=== PATIENT | female | born 1945 | race Caucasian/White ===

== ENCOUNTER → 2021-02-02 14:20 | Outpatient (CLI) | payer MEDICARE, OTHER, SELFPAY ==
--- NOTE | 2021-02-02 14:28 | BI_ITS ---
MAMMOGRAPHY - UNILATERAL DIAGNOSTIC: LEFT BREAST REASON FOR EXAM: Female, 75 years old. Asymmetry on recent mammogram. PERTINENT HISTORY: Personal history of breast cancer. Prior right lumpectomy and radiation treatment. TECHNIQUE: Digital unilateral breast hari (3D mammographic acquisition) in the CC and MLO projections. 2-D mediolateral oblique (MLO) and craniocaudad (CC) views of both breasts were obtained. CAD: Full Field Digital Mammography with Computer Added Detection was performed. COMPARISON: Comparison is made with prior outside examination dated 01/19/2021. FINDINGS: Breast Composition: There are scattered areas of fibroglandular density. There are no dominant masses or suspicious calcifications. A tissue clip marker is seen in the upper lateral aspect of the left breast. No other significant abnormalities are identified. BI/DIAG MAMM W/CAD, UNILAT IMPRESSION: Stable unilateral diagnostic mammogram. Correlation with ultrasound is recommended. ASSESSMENT CATEGORY: BIRADS Category 0: Incomplete. Need additional imaging evaluation. A letter regarding these results will be sent to the patient by the facility within 30 days. Approximately 10% of breast cancers are not detected by mammography. A normal mammogram should not delay biopsy of a clinically suspicious abnormality. Electronically Signed: Malcolm Edmondson MD at 15:22 EDT , Service support ,
--- NOTE | 2021-02-02 14:28 | US_ITS ---
STUDY: ULTRASOUND BREAST - LEFT REASON FOR EXAM: Female, 75 years old. Abnormal screening mammogram. TECHNIQUE: Axial and longitudinal images of the LEFT breast were performed with a high resolution ultrasound transducer. # OF IMAGES: 43 COMPARISON: Comparison is made with prior mammogram done earlier in the day. FINDINGS: LEFT Breast: There is a 4 mm x 5 mm x 4 mm cyst at the 1 o''clock position of the breast at 3 cm from the nipple. There is also evidence of a dilated retroareolar duct. US/Breast Limited Unilateral IMPRESSION: 4 mm x 5 mm x 4 mm cyst at the 1 o''clock position of the breast at 3 cm from the nipple. Dilated retroareolar duct. ASSESSMENT CATEGORY: BIRADS Category 2: Benign. A letter regarding these results will be sent to the patient by the facility within 30 days. Electronically Signed: Malcolm Edmondson MD at 15:43 EDT , Service support ,
== END ==
PROVIDERS: PCP Family Medicine; Referring Provider Nurse Practitioner Family; Visit Provider Nurse Practitioner Family
DX: R92.8 Other abnormal and inconclusive findings on diagnostic imaging of breast (principal)
CPT/HCPCS: 76642; 77065

== ENCOUNTER 2021-06-04 13:44 | Inpatient (IN) | payer MEDICARE, OTHER, SELFPAY ==
[2021-06-04] VITALS (11 sets, daily range): BP systolic 119–142; BP diastolic 72–92; PULSE 78–103; RESP 15–20; TEMP 36.7–36.8; O2SAT 86–98; BMI 31.6; BMI 30.8
--- NOTE | 2021-06-04 14:06 | EKG12_ITS ---
Test Reason : SOB Blood Pressure : / mmHG Vent. Rate : 091 BPM Atrial Rate : 091 BPM P-R Int : 156 ms QRS Dur : 084 ms QT Int : 366 ms P-R-T Axes : 065 031 073 degrees QTc Int : 450 ms Normal sinus rhythm Normal ECG Confirmed by CORY RUIZ, PHIL ([id number]), fashion editor JAMES SANCHEZ ([id number]) on 06/06/2021 1:29:04 PM Referred By: KATRIN Confirmed By:PHIL RAY MD
--- NOTE | 2021-06-04 14:07 | ED.VIS.DYS ---
HPI History of Present Illness Chief Complaint: Shortness of Breath Detail of Chief Complaint: Cold symptoms for 3 days Informant: patient Narrative Narrative: Patient presents with cough and nasal congestion for 3 days. Patient started feeling more short of breath today. She is at times bringing up some white clear phlegm. She denies fever. She has had some intermittent headache. She denies chest pain. Patient has had her COVID-vaccine and booster. She denies sick contacts. [facility] Medical History (Updated 06/04/21 @ 16:[address] Norberto Quick, ) Depression High cholesterol HTN (hypertension) Home Medications alprazolam [Xanax Xr] 0.25 mg PO QHS PRN PRN 09/13/13 [History Last Taken Unknown] bisoprolol-hydrochlorothiazide 1 tab PO DAILY 09/13/13 [History Last Taken Unknown] fluoxetine 20 mg PO DAILY 09/13/13 [History Last Taken Unknown] simvastatin 20 mg PO QHS 09/13/13 [History Last Taken Unknown] Allergy/AdvReac Type Severity Reaction Status Date / Time bacitracin Allergy Rash Verified 06/04/21 13:48 [From Neosporin ([id number])] bacitracin zinc Allergy Rash Verified 06/04/21 13:48 [From Neosporin ([id number])] neomycin sulfate Allergy Rash Verified 06/04/21 13:48 [From Neosporin ([id number])] polymyxin B Allergy Rash Verified 06/04/21 13:48 [From Neosporin ([id number])] sulfamethoxazole AdvReac Nausea/Vom/ Verified 06/04/21 13:48 [From Bactrim] Diarrhea trimethoprim [From Bactrim] AdvReac Nausea/Vom/ Verified 06/04/21 13:48 Diarrhea Social History Smoking Status: Never smoker [facility] ED Constitutional Constitutional ED: Reports systems reviewed and no addt'l complaints, except as documented; Denies body ache(s), change in weight or chills Eyes Eyes: Denies acute decrease in peripheral vision, change in vision, double vision or loss of vision ENT ENT ED: Reports none; Denies ear pain, lip swelling, loss taste/smell, neck pain, otalgia or sore throat Cardiovascular Cardiovascular: Reports none; Denies abdominal pain, chest pain with activity, leg edema, lightheadedness, palpitations, rapid heart rate or syncope Respiratory/Chest Respiratory/Chest: Reports none, cough, dyspnea and sputum; Denies change in mental status, dry cough, hemoptysis, shortness of breath at rest or shortness of breath with exertion Gastrointestinal Gastrointestinal: Reports none; Denies abdominal pain, change in stool character, diarrhea, hematemesis, hematochezia, melena, rectal bleeding or vomiting Genitourinary Genitourinary ED: Reports none; Denies abdominal discomfort, anuria, dysuria, genital pain or polyuria Musculoskeletal Musculoskeletal: Reports none; Denies arthralgias, back pain, difficulty walking, extremity pain, muscle weakness or myalgias Integumentary Reports none; Denies abscess or rash Neurologic Neurologic: Reports none and headache(s); Denies abnormal gait, confusion, focal weakness, frequent falls, loss of vision, numbness, paresthesias, radicular pain, vertigo or weakness Psychiatric Psychiatric: Reports systems reviewed and no addt'l complaints, except as documented and none; Denies behavioral changes, confusion, difficulty concentrating, hallucinations, suicidal ideation, tactile hallucinations or visual hallucinations Endocrine Endocrinology: Denies none, cold intolerance, excessive sweating, fatigue or heat intolerance Hematologic/Lymphatic Hematologic/Lymphatic: Reports none; Denies anemia, easy bleeding or easy bruising Allergic/Immunologic Allergic/Immunologic ED: Denies as per HPI, none, lip swelling, mouth swelling, throat swelling, tongue swelling or hives EXAM Physical Exam Const Vital Signs: 06/04/21 13:45 06/04/21 14:43 06/04/21 14:50 Temperature 98.2 F Temperature Source Temporal Pulse Rate 103 H 89 Respiratory Rate 18 15 Respiratory Effort Short of Breath Respiratory Depth Deep Respiratory Pattern Tachypnea Blood Pressure 119/90 H Blood Pressure Mean 99 Pulse Ox 89 94 Oxygen Delivery Method Room Air Room Air Room Air Oxygen Flow Rate (L/min) 06/04/21 15:49 06/04/21 15:51 Temperature Temperature Source Pulse Rate 87 Respiratory Rate 18 Respiratory Effort Respiratory Depth Respiratory Pattern Blood Pressure 131/92 H Blood Pressure Mean 105 Pulse Ox 86 94 Oxygen Delivery Method Room Air Nasal Cannula Oxygen Flow Rate (L/min) 1 Positive well nourished and well developed General Appearance ED: well developed and NAD HEENT Reports TM's clear and moist mucous membranes normocephalic and atraumatic; Negative for trauma or tenderness Tympanic Membrane ED: Yes TM's clear Eyes PERRL and EOMs intact bilaterally General Eye ED: Negative for pale conjunctiva or scleral icterus Neck no lymphadenopathy, supple and no JVD General: Negative for tenderness Chest Wall inspection of chest normal and palpation of chest normal Chest: Negative for tenderness Resp normal respiratory effort and clear to auscultation bilaterally Resp Narrative: No significant tachypnea. No accessory muscle use or retractions. Effort and Inspection: Negative for respiratory distress or pain with movement Auscultation: wheezes; Negative for rhonchi or diminished lung sounds Cardio regular rate, regular rhythm, S1 normal heart sound, S2 normal heart sound and no murmurs Peripheral Pulses: pulses 2+ throughout GI normal to inspection, nondistended, normoactive bowel sounds, soft to palpation, non-tender, non-distended and no masses Back/Spine no CVA tenderness and no thoracic nor lumbar tenderness Extremity normal to inspection General Extremety ED: Negative for edema General Extremity: Negative for edema Neuro oriented x3, CN's II-XII intact bilaterally, no sensory deficits noted and gait normal Sensorium / Orientation: awake, alert, oriented to person, oriented to place and oriented to time Motor Exam: strength 5/5 throughout and strength abnormal Psych mental status grossly normal Skin no rashes or lesions noted and no wounds MDM MDM MDM Narrative Medical decision making narrative: Tablets on arrival. Patient was given a DuoNeb aerosol as she was wheezing. Patient was started on Solu-Medrol. With ambulation her O2 sat dropped to 86%. Patient was placed on 2 L nasal cannula O2. Chest x-ray was unremarkable. Rapid COVID-19 testing was negative. I will order a PCR test. Etiology of her hypoxemia is unclear. Lab Data Attestation: I reviewed the patient's lab results. Labs: Laboratory Results - last 24 hr 06/04/21 06/04/21 06/04/21 14:45 14:45 14:45 WBC 6.0 RBC 4.39 Hgb 13.9 Hct 39.7 MCV 90.4 MCH 31.7 MCHC 35.0 RDW Std Deviation 41.6 RDW Coeff of Tracey 12.5 Plt Count 209 MPV 9.9 Immature Gran % (Auto) 0.300 Neut % (Auto) 51.9 Lymph % (Auto) 31.3 [place] % (Auto) 11.9 H Eos % (Auto) 3.6 Baso % (Auto) 1.0 Absolute Neuts (auto) 3.1 Absolute Lymphs (auto) 1.89 Nucleated RBC % 0 D-Dimer Quant (PE/DVT) Cancelled Sodium Cancelled Potassium Cancelled Chloride Cancelled Carbon Dioxide Cancelled Anion Gap Cancelled BUN Cancelled Creatinine Cancelled Estim Creat Clear Calc Cancelled Est GFR (MDRD) Af Amer Cancelled Est GFR (MDRD) Non-Af Cancelled BUN/Creatinine Ratio Cancelled Glucose Cancelled Lactic Acid Calcium Cancelled 06/04/21 06/04/21 06/04/21 14:45 15:10 15:10 WBC RBC Hgb Hct MCV MCH MCHC RDW Std Deviation RDW Coeff of Tracey Plt Count MPV Immature Gran % (Auto) Neut % (Auto) Lymph % (Auto) [place] % (Auto) Eos % (Auto) Baso % (Auto) Absolute Neuts (auto) Absolute Lymphs (auto) Nucleated RBC % D-Dimer Quant (PE/DVT) 0.46 Sodium 141 Potassium 3.4 L Chloride 103 Carbon Dioxide 31.0 Anion Gap 7 BUN 18 Creatinine 0.93 Estim Creat Clear Calc 42.57 Est GFR (MDRD) Af Amer 75 Est GFR (MDRD) Non-Af 62 BUN/Creatinine Ratio 19.4 Glucose 90 Lactic Acid Cancelled Calcium 9.2 06/04/21 15:10 WBC RBC Hgb Hct MCV MCH MCHC RDW Std Deviation RDW Coeff of Tracey Plt Count MPV Immature Gran % (Auto) Neut % (Auto) Lymph % (Auto) [place] % (Auto) Eos % (Auto) Baso % (Auto) Absolute Neuts (auto) Absolute Lymphs (auto) Nucleated RBC % D-Dimer Quant (PE/DVT) Sodium Potassium Chloride Carbon Dioxide Anion Gap BUN Creatinine Estim Creat Clear Calc Est GFR (MDRD) Af Amer Est GFR (MDRD) Non-Af BUN/Creatinine Ratio Glucose Lactic Acid 1.5 Calcium Radiography Chest X-Ray - ED: 1 View Diagnostic Testing: Clinical Impression(s) from Imaging Studies Chest X-Ray 06/04/21 14:50 IMPRESSION: Normal x-ray examination of the chest. Electronically Signed: Solis Guiterrez MD at 15:20 EST Tel , Service support , 1 view chest x-ray obtained interpreted by myself no acute disease process. Radiology in agreement. EKG Initial EKG: Attestation: I personally reviewed and interpreted this EKG as follows: Comments: Sinus rhythm with a ventricular rate of 91 bpm with no acute ST segment changes Discharge Plan Triage Chief Complaint: Shortness of Breath ED Provider: Norberto Quick Dx/Rx/DC Orders Clinical Impression: Reactive airway disease, URI, acute, Hypoxemia Prescriptions: No Action bisoprolol-hydrochlorothiazide 1 TAB tablet 1 tab PO DAILY RF: 0 simvastatin 20 MG tablet 20 mg PO QHS RF: 0 fluoxetine 20 MG capsule 20 mg PO DAILY RF: 0 alprazolam [Xanax XR] 0.5 MG tablet extended release 24 hr 0.25 mg PO QHS PRN PRN (Reason: Anxiety) RF: 0 Primary Care Provider: Josselin Quinn Referrals: Josselin Quinn MD [Primary Care Provider] - Disposition Disposition: Acute Care Hospital [facility]
[2021-06-04] MEDS: Ipratropium/Albuterol Sulfate 3 ML AMPUL.NEB INHALATION (14:41)
--- NOTE | 2021-06-04 14:50 | RAD_ITS ---
STUDY: X-RAY CHEST REASON FOR EXAM: Female, 76 years old. dyspnea TECHNIQUE: Single AP portable view of the chest. COMPARISON: 09/13/2013 FINDINGS: Status post right axillary lymph node dissection. The lungs are clear and expanded. There is no demonstrated pleural abnormality. Normal size heart. Normal mediastinum and colten. Normal visualized pulmonary arteries. Normal visualized aortic arch and descending thoracic aorta. Normal visualized thoracic spine. Normal visualized ribs, clavicles, and shoulders. There is no demonstrated abnormality of the visualized soft tissue structures of the upper abdomen. RAD/Chest 1 View (Portable) IMPRESSION: Normal x-ray examination of the chest. Electronically Signed: Solis Gutierrez MD at 15:20 EST Tel , Service support ,
[2021-06-04 14:55] LABS: Absolute Lymphocyte Count 1.89 X10^3/uL (0.83-4.51); Absolute Neutrophil Count 3.1 X10^3/uL (2.0-7.7); Basophil# 0.06 X10^3/uL; Eosinophil# 0.22 X10^3/uL; Eosinophils% 3.6 % (0-5); Hematocrit 39.7 % (37-47); Hemoglobin 13.9 g/dL (12.0-15.0); Lymphocyte # 1.89 X10^3/ul (0.83-4.51); Lymphocyte % 31.3 % (19-41); Mean Corpuscular Hgb 31.7 pg (27.0-32.0); Mean Corpuscular Volume 90.4 fL (81-99); Mean Platelet Vol. 9.9 fl (6.2-12.0); Monocyte# 0.72 X10^3/uL; Monocyte% 11.9 % (0-10); NRBC Flagged by Analyzer 0 % (0-5); Neutrophil # 3.12 X10^3/uL (2.7-7.7); Neutrophil % 51.9 % (47-70); Platelet Count 209 K/mm3 (150-450); RBC Distribution Width CV 12.5 % (11.6-14.6); RBC Distribution Width SD 41.6 fl (35.1-43.9); Red Blood Count 4.39 M/mm3 (4.2-5.4)
[2021-06-04 15:36] LABS: D-Dimer Quantitative (DVT/PE) 0.46 FEU/ug/m (0.27-0.49)
[2021-06-04 15:38] LABS: Anion Gap 7 (5-15); BUN 18 mg/dL (7-18); BUN/Creat Ratio 19.4 RATIO (10-20); Calcium,Total 9.2 mg/dL (8.5-10.1); Chloride 103 mmol/L (98-107); Creatinine, Serum 0.93 mg/dL (0.55-1.02); EST Glomerular Filtration Rate 62 mL/min (>60); Est Glom Filt Rate - Afr Amer 75 mL/min (>60); Estimated Creatinine Clearance 42.57 ml/min; Glucose 90 mg/dL (74-106); Potassium 3.4 mmol/L (3.5-5.1); Sodium Level 141 mmol/L (136-145)
[2021-06-04 15:40] LABS: Lactic Acid 1.5 mmol/L (0.4-1.9)
[2021-06-04] MEDS: MethylPREDNISolone 125 MG/2 ML Vial IV (16:33)
--- NOTE | 2021-06-04 16:41 | HP.PCM.HOS_ITS ---
HPI - General General Date of Admission: 06/04/21 Date of Service: 06/04/21 Chief Complaint: Progressive shortness of breath -3 days HPI Narrative MYNOR PACHECO, is a 76 F who presents with the above. Patient is vaccinated against COVID-19 infection and has received her booster. She complains of a 3- day history of cough, sinus drainage, shortness of breath. She denied any history of COPD or asthma. She gets most of her care from the [facility]. She has a remote history of breast CA status post lumpectomy in 1996. Patient's pulse ox was 86% on room air on admission. It improved with 2 L to 98%. Admitting chest x-ray was unremarkable. Admitting blood work was significant for potassium of 3.4. [facility] Medical History (Updated 06/04/21 @ 19:[address] Mariama Smith MD) Depression High cholesterol HTN (hypertension) Home Medications alprazolam [Xanax Xr] 0.25 mg PO QHS PRN PRN 09/13/13 [History Last Taken Unknown] bisoprolol-hydrochlorothiazide 1 tab PO DAILY 09/13/13 [History Last Taken Unknown] fluoxetine 20 mg PO DAILY 09/13/13 [History Last Taken Unknown] simvastatin 20 mg PO QHS 09/13/13 [History Last Taken Unknown] Allergy/AdvReac Type Severity Reaction Status Date / Time bacitracin Allergy Rash Verified 06/04/21 13:48 [From Neosporin ([id number])] bacitracin zinc Allergy Rash Verified 06/04/21 13:48 [From Neosporin ([id number])] neomycin sulfate Allergy Rash Verified 06/04/21 13:48 [From Neosporin ([id number])] polymyxin B Allergy Rash Verified 06/04/21 13:48 [From Neosporin ([id number])] sulfamethoxazole AdvReac Nausea/Vom/ Verified 06/04/21 13:48 [From Bactrim] Diarrhea trimethoprim [From Bactrim] AdvReac Nausea/Vom/ Verified 06/04/21 13:48 Diarrhea Family History (Updated 06/04/21 @ 19:[address] Mariama Smith MD) Mother Heart disease Surgical History (Updated 06/04/21 @ 19:[address] Mariama Smith MD) H/O lumpectomy S/P BSO (bilateral salpingo-oophorectomy) Social History (Updated 06/04/21 @ 19:[address] Mariama Smith MD) household members: spouse Smoking Status: Never smoker alcohol intake: never substance use type: does not use ROS ROS Narrative Constitutional: Reports: Malaise, Weakness, Fatigue. Denies: Anorexia, Chills, Fever, Night Sweats, Weight Change Eyes: Denies: Blurred vision, Cataracts, Conjunctivae Inflammation, Pain, Redness, Vision Change HEENT: Denies: Difficulty Hearing, Difficulty Swallowing, Head Aches, Hearing Changes, Sinus Congestion, Sinus Drainage Cardiovascular: Denies: Chest Pain, Orthopnea, Palpitations Respiratory: Admits to cough, Shortness of breath at rest, Sputum production Gastrointestinal: Denies: Abdominal Pain, Nausea, Vomiting Genitourinary: Denies: Dysuria Musculoskeletal: Denies: Joint Pain, Joint stiffness, Joint swelling, Joint Tenderness Skin: Denies: Rash, Wounds Neurological: Denies: Numbness, Tingling, Focal weakness Vital Signs Vital Signs Vital Signs: 06/04/21 13:45 06/04/21 14:43 06/04/21 14:50 Temperature 98.2 F Temperature Source Temporal Pulse Rate 103 H 89 Respiratory Rate 18 15 Respiratory Effort Short of Breath Respiratory Depth Deep Respiratory Pattern Tachypnea Blood Pressure 119/90 H Blood Pressure Mean 99 Pulse Ox 89 94 Oxygen Delivery Method Room Air Room Air Room Air Oxygen Flow Rate (L/min) 06/04/21 15:49 06/04/21 15:51 06/04/21 16:35 Temperature 98.0 F Temperature Source Temporal Pulse Rate 87 86 Respiratory Rate 18 16 Respiratory Effort Respiratory Depth Respiratory Pattern Blood Pressure 131/92 H 124/80 H Blood Pressure Mean 105 94 Pulse Ox 86 94 94 Oxygen Delivery Method Room Air Nasal Cannula Nasal Cannula Oxygen Flow Rate (L/min) 1 1 Weight Weight: 81.193 kg Body Mass Index (BMI) 31.6 Physical Exam Narrative Physical exam: General: Alert, Oriented x3, Cooperative, No apparent distress, on 2 L of oxygen, with coughing spell HEENT: Atraumatic Oral: Moist Mucosa Neck: Supple Lungs: Diminished to auscultation, wheezes++ Cardiovascular: HS I+II, regular, no murmurs Abdomen: Bowel Sounds Present, Soft, Non Tender Extremities: No edema Results Lab / Micro Data Result Diagrams: 06/04/21 14:45 06/04/21 15:10 Labs: Laboratory Results - last 24 hr 06/04/21 14:45: WBC 6.0, RBC 4.39, Hgb 13.9, Hct 39.7, MCV 90.4, MCH 31.7, MCHC 35.0, RDW Std Deviation 41.6, RDW Coeff of Tracey 12.5, Plt Count 209, MPV 9.9, Immature Gran % (Auto) 0.300, Neut % (Auto) 51.9, Lymph % (Auto) 31.3, [place] % (Auto) 11.9 H, Eos % (Auto) 3.6, Baso % (Auto) 1.0, Absolute Neuts (auto) 3.1, Absolute Lymphs (auto) 1.89, Nucleated RBC % 0 06/04/21 14:45: D-Dimer Quant (PE/DVT) Cancelled 06/04/21 14:45: Sodium Cancelled, Potassium Cancelled, Chloride Cancelled, Carbon Dioxide Cancelled, Anion Gap Cancelled, BUN Cancelled, Creatinine Cancelled, Estim Creat Clear Calc Cancelled, Est GFR (MDRD) Af Amer Cancelled, Est GFR (MDRD) Non-Af Cancelled, BUN/Creatinine Ratio Cancelled, Glucose Cancelled, Calcium Cancelled 06/04/21 14:45: Lactic Acid Cancelled 06/04/21 15:10: D-Dimer Quant (PE/DVT) 0.46 06/04/21 15:10: Sodium 141, Potassium 3.4 L, Chloride 103, Carbon Dioxide 31.0, Anion Gap 7, BUN 18, Creatinine 0.93, Estim Creat Clear Calc 42.57, Est GFR (MDRD) Af Amer 75, Est GFR (MDRD) Non-Af 62, BUN/Creatinine Ratio 19.4, Glucose 90, Calcium 9.2 06/04/21 15:10: Lactic Acid 1.5 Micro: Microbiology 06/04/21 14:30 Nasal Secretion SARS-CoV-2 Antigen (Rapid) - Final Radiology Impression Chest X-Ray 06/04/21 14:50 IMPRESSION: Normal x-ray examination of the chest. Electronically Signed: Solis Gutierrez MD at 15:20 EST Tel , Service support , Assessment & Plan Assessment/Plan (1) Acute respiratory failure with hypoxia: (2) Acute bronchitis: PLAN: 1. Acute hypoxic respiratory failure likely secondary to acute bronchitis Patient without history of COPD or asthma She has been vaccinated against acute COVID-19 infection and has had a booster Rapid COVID-19 antigen test is negative COVID-19 PCR is pending Chest x-ray shows no acute infiltrate Patient has significant wheezes on exam Admit to [facility], IV Solu-Medrol, continue on breathing treatments Check influenza/RSV 2. Hypokalemia, replace, recheck in a.m. 3. Hypertension, continue home medication 4. Anxiety/depression, continue on Xanax and fluoxetine 5. I discussed and explained in details the various types of CODE STATUS-full code, DNR CCA, DNR CC. She has a living will and do not like any aggressive measures in the event of a cardiopulmonary arrest. CODE STATUS will be DNR CCA, no intubation Time spent discussing CODE STATUS 16 minutes Charges/Coding Visit Charges Inpatient E&M: 42303 Init Hosp L3 Procedures Hospitalists Procedures: 45902 Advncd Care Plan 30 Min
[2021-06-04] MEDS: Potassium Chloride Oral Tablet 20 MEQ 40 MEQ PO (20:01)
[2021-06-04] MEDS: hydroCHLOROthiazide 12.5mg 12.5 MG PO (22:13)
[2021-06-04] MEDS: guaiFENesin 600 MG Tablet PO (22:14)
[2021-06-04] MEDS: Atorvastatin Calcium 10 MG Tablet PO (22:14)
[2021-06-04] MEDS: Acetaminophen 325 MG Tablet 650 MG PO (22:14)
[2021-06-04] MEDS: Lisinopril 10 MG Tablet PO (22:14)
[2021-06-04] MEDS: Fluticasone 0.05% 1 SPRAY NASAL.SRY NASAL (22:25)
[2021-06-05 04:40] VITALS: BP 110/67; PULSE 80; RESP 18; TEMP 36.6; O2SAT 94
[2021-06-05 06:06] LABS: Absolute Lymphocyte Count 1.04 X10^3/uL (0.83-4.51); Absolute Neutrophil Count 5.6 X10^3/uL (2.0-7.7); Basophil# 0.02 X10^3/uL; Basophil% 0.3 % (0-1); Eosinophil# 0.02 X10^3/uL; Eosinophils% 0.3 % (0-5); Hematocrit 39.9 % (37-47); Lymphocyte # 1.04 X10^3/ul (0.83-4.51); Lymphocyte % 15.3 % (19-41); Mean Corp Hgb Conc 32.6 g/dL (32-36); Monocyte# 0.11 X10^3/uL; Monocyte% 1.6 % (0-10); NRBC Flagged by Analyzer 0 % (0-5); Neutrophil # 5.57 X10^3/uL (2.7-7.7); Neutrophil % 81.9 % (47-70); POSITIVE COUNT YES; Platelet Count 215 K/mm3 (150-450); RBC Distribution Width CV 12.2 % (11.6-14.6); RBC Distribution Width SD 42.5 fl (35.1-43.9); White Blood Count 6.8 K/mm3 (4.4-11.0)
[2021-06-05 06:08] LABS: Differential Indicated SCAN CRITERIA MET
[2021-06-05 06:30] LABS: ALB/GLOB Ratio 0.9 RATIO (0.9-2.4); AST(SGOT) 11 U/L (15-37); Alanine Aminotransfer ALT/SGPT 20 U/L (13-56); Albumin, Serum 3.4 g/dL (3.2-5.0); Alkaline Phosphatase 51 U/L (45-117); Anion Gap 10 (5-15); BUN 22 mg/dL (7-18); BUN/Creat Ratio 23.5 RATIO (10-20); Calcium,Total 9.1 mg/dL (8.5-10.1); Chloride 102 mmol/L (98-107); Creatinine, Serum 0.94 mg/dL (0.55-1.02); EST Glomerular Filtration Rate 62 mL/min (>60); Est Glom Filt Rate - Afr Amer 75 mL/min (>60); Estimated Creatinine Clearance 42.12 ml/min; Globulin 3.8 g/dL (2.2-4.2); Glucose 153 mg/dL (74-106); Potassium 3.9 mmol/L (3.5-5.1); Protein, Total 7.2 g/dL (6.4-8.2); Sodium Level 137 mmol/L (136-145)
[2021-06-05 06:43] VITALS: PULSE 81; RESP 18; O2SAT 91
[2021-06-05] MEDS: Ipratropium/Albuterol Sulfate 3 ML AMPUL.NEB INHALATION ×2 (06:43→10:55)
[2021-06-05 09:19] VITALS: BP 97/63; PULSE 94; RESP 18; TEMP 36.7; O2SAT 97
[2021-06-05 09:21] VITALS: O2SAT 91; O2SAT 97
[2021-06-05] MEDS: Fluticasone 0.05% 1 SPRAY NASAL.SRY NASAL (09:34)
[2021-06-05] MEDS: guaiFENesin 600 MG Tablet PO (09:35)
[2021-06-05] MEDS: Enoxaparin 40 MG/0.4 ML Syringe SC (09:35)
--- NOTE | 2021-06-05 09:50 | PCM.DC.SUM ---
Providers Date of Admission: 06/04/21 Primary Care Physician: Dr. Josselin Quinn MD Reason For Visit: sob Diagnosis Discharge Diagnosis (1) Acute respiratory failure with hypoxia: Status: Acute Code(s): J96.01 - Acute respiratory failure with hypoxia (2) Acute bronchitis: Status: Acute Code(s): J20.9 - Acute bronchitis, unspecified Medications at Discharge Home Medications alprazolam [Xanax XR] 0.25 mg PO QHS PRN PRN 09/13/13 fluoxetine 20 mg PO DAILY 09/13/13 simvastatin 20 mg PO QHS 09/13/13 hydrochlorothiazide 12.5 mg PO DAILY 06/04/21 lisinopril 10 mg PO DAILY 06/04/21 albuterol sulfate 2 puff INHALATION Q6H PRN #8.5 g 06/05/21 doxycycline hyclate 100 mg PO BID #14 cap 06/05/21 guaifenesin [Mucus Relief ER] 600 mg PO BID #14 tab 06/05/21 prednisone 40 mg PO DAILY #10 tab 06/05/21 Hospital Course Summary of Care Provided Minutes Spent on Discharge: 35 Hospital Course: Patient is a 76-year-old lady who presented with persistent cough. Diagnosed with acute bronchitis 1. Acute bronchitis patient admitted to regular nursing floor treated symptomatically with aerosol treatment as well as steroid. Patient condition did improve discharged home day after admission 2. Dyslipidemia -Patient is on statin therapy, continued at home dose 3. Hypertension - Blood pressure controlled, home medications continued with dose adjustment as needed 4. DVT prophylaxis - Lovenox Physical Exam Narrative GENERAL: cooperative HEENT: Atraumatic; EYES; Anicteric, Normal Conjunctiva NECK; supple, normal thyroid, RESPIRATORY: Diminished to auscultation CARDIOVASCULAR: Regular S1 S2, GI: soft, normoactive bowel sounds, : No Renal angle tenderness; EXTREMITIES: No edema, no clubbing, MUSCULOSKELETAL: no muscle waisting NEURO: Awake; no lateralizing signs. SKIN: No Rash PSYCH; Flat affect Weight / BMI Weight Weight: 79 kg Body Mass Index (BMI) 30.8 ABG / Lab / Microbiology Data Result Diagrams: 06/05/21 05:30 06/05/21 05:30 Laboratory: Laboratory Results - last 24 hr 06/04/21 14:45: WBC 6.0, RBC 4.39, Hgb 13.9, Hct 39.7, MCV 90.4, MCH 31.7, MCHC 35.0, RDW Std Deviation 41.6, RDW Coeff of Tracey 12.5, Plt Count 209, MPV 9.9, Immature Gran % (Auto) 0.300, Neut % (Auto) 51.9, Lymph % (Auto) 31.3, [place] % (Auto) 11.9 H, Eos % (Auto) 3.6, Baso % (Auto) 1.0, Absolute Neuts (auto) 3.1, Absolute Lymphs (auto) 1.89, Nucleated RBC % 0 06/04/21 14:45: D-Dimer Quant (PE/DVT) Cancelled 06/04/21 14:45: Sodium Cancelled, Potassium Cancelled, Chloride Cancelled, Carbon Dioxide Cancelled, Anion Gap Cancelled, BUN Cancelled, Creatinine Cancelled, Estim Creat Clear Calc Cancelled, Est GFR (MDRD) Af Amer Cancelled, Est GFR (MDRD) Non-Af Cancelled, BUN/Creatinine Ratio Cancelled, Glucose Cancelled, Calcium Cancelled 06/04/21 14:45: Lactic Acid Cancelled 06/04/21 15:10: D-Dimer Quant (PE/DVT) 0.46 06/04/21 15:10: Sodium 141, Potassium 3.4 L, Chloride 103, Carbon Dioxide 31.0, Anion Gap 7, BUN 18, Creatinine 0.93, Estim Creat Clear Calc 42.57, Est GFR (MDRD) Af Amer 75, Est GFR (MDRD) Non-Af 62, BUN/Creatinine Ratio 19.4, Glucose 90, Calcium 9.2 06/04/21 15:10: Lactic Acid 1.5 06/04/21 16:30: COVID-19 (CANDICE) Not Detected 06/05/21 05:30: WBC 6.8, RBC 4.20, Hgb 13.0, Hct 39.9, MCV 95.0 D, MCH 31.0, MCHC 32.6 D, RDW Std Deviation 42.5, RDW Coeff of Tracey 12.2, Plt Count 215, MPV 10.0, Immature Gran % (Auto) 0.600, Neut % (Auto) 81.9 H, Lymph % (Auto) 15.[address] L, [place] % (Auto) 1.6, Eos % (Auto) 0.3, Baso % (Auto) 0.3, Absolute Neuts (auto) 5.6, Absolute Lymphs (auto) 1.04, Nucleated RBC % 0 06/05/21 05:30: Sodium 137, Potassium 3.9, Chloride 102, Carbon Dioxide 25.0, Anion Gap 10, BUN 22 H, Creatinine 0.94, Estim Creat Clear Calc 42.12, Est GFR (MDRD) Af Amer 75, Est GFR (MDRD) Non-Af 62, BUN/Creatinine Ratio 23.5 H, Glucose 153 H, Calcium 9.1, Total Bilirubin 0.50, AST 11 L, ALT 20, Alkaline Phosphatase 51, Total Protein 7.2, Albumin 3.4, Globulin 3.8, Albumin/Globulin Ratio 0.9 Microbiology: Microbiology 06/04/21 20:20 Mucosa - Nasopharyngeal Rapid RSV (DFA) - Final 06/04/21 17:25 Mucosa - Nasopharyngeal Influenza Types A,B Direct FA (TRUDY) - Final 06/04/21 14:30 Nasal Secretion SARS-CoV-2 Antigen (Rapid) - Final Radiography Diagnostic Testing: Radiology Impression Chest X-Ray 06/04/21 14:50 IMPRESSION: Normal x-ray examination of the chest. Electronically Signed: Solis Gutierrez MD at 15:20 EST Tel , Service support , D/C Instructions Discharge Diet: No restrictions Discharge Activity: Return to Normal Activity Call your doctor if you observe: Fever of 101 or Higher, Shortness of breath, Fainting spells and Chest pain Meaningful Use Info Meaningful Use Diagnoses (Choose all that apply): None applicable Discharge Plan Admission Admit Date/Time: 06/04/21 16:38 Attending Provider: Eduardo Mata Primary Care Provider: Josselin Quinn Discharge Orders/Prescriptions Prescriptions: New guaifenesin [Mucus Relief ER] 600 mg Tablet Extended Release 12hr 600 mg PO BID Qty: 14 RF: 0 prednisone 20 mg tablet 40 mg PO DAILY Qty: 10 RF: 0 doxycycline hyclate 100 mg capsule 100 mg PO BID Qty: 14 RF: 0 albuterol sulfate 90 mcg/actuation HFA aerosol inhaler 2 puff inhalation Q6H PRN (Reason: shortness of breath or wheezing) Qty: 8.5 RF: 0 Continued simvastatin 20 MG tablet 20 mg PO QHS RF: 0 fluoxetine 20 MG capsule 20 mg PO DAILY RF: 0 alprazolam [Xanax XR] 0.5 MG tablet extended release 24 hr 0.25 mg PO QHS PRN PRN (Reason: Anxiety) RF: 0 lisinopril 10 mg tablet 10 mg PO DAILY RF: 0 hydrochlorothiazide 12.5 mg capsule 12.5 mg PO DAILY RF: 0 Referrals / Follow Up: Josselin Quinn MD [Primary Care Provider] - In 1 Week Disposition Disposition (needs filled in before D/C Order can be placed): Home, Self Care Charges/Coding Visit Charges OBSV E&M: 89128 Observation care discharge
--- NOTE | 2021-06-05 09:56 | PCM.DC ---
Discharge Instructions Diet Discharge Diet: No restrictions Dressing / Incision Call your doctor if you observe: Fever of 101 or Higher, Shortness of breath, Fainting spells and Chest pain Follow Up Care Test Results: Test results from this visit will be discussed in further detail at your follow-up appointment, if applicable. Discharge Plan Admission Admit Date/Time: 06/04/21 16:38 Attending Provider: Eduardo Mata Primary Care Provider: Josselin Quinn Discharge Orders/Prescriptions Prescriptions: New guaifenesin [Mucus Relief ER] 600 mg Tablet Extended Release 12hr 600 mg PO BID Qty: 14 RF: 0 prednisone 20 mg tablet 40 mg PO DAILY Qty: 10 RF: 0 doxycycline hyclate 100 mg capsule 100 mg PO BID Qty: 14 RF: 0 albuterol sulfate 90 mcg/actuation HFA aerosol inhaler 2 puff inhalation Q6H PRN (Reason: shortness of breath or wheezing) Qty: 8.5 RF: 0 Continued simvastatin 20 MG tablet 20 mg PO QHS RF: 0 fluoxetine 20 MG capsule 20 mg PO DAILY RF: 0 alprazolam [Xanax XR] 0.5 MG tablet extended release 24 hr 0.25 mg PO QHS PRN PRN (Reason: Anxiety) RF: 0 lisinopril 10 mg tablet 10 mg PO DAILY RF: 0 hydrochlorothiazide 12.5 mg capsule 12.5 mg PO DAILY RF: 0 Referrals / Follow Up: Josselin Quinn MD [Primary Care Provider] - In 1 Week Disposition Disposition (needs filled in before D/C Order can be placed): Home, Self Care
[2021-06-05 10:55] VITALS: PULSE 82; RESP 20; O2SAT 93
[2021-06-05 11:28] VITALS: BP 100/53; PULSE 91; RESP 16; TEMP 36.4; O2SAT 93
--- NOTE | 2021-06-05 14:30 | CASEMGMT ---
[employer] Assessment: Face to Face with pt for initial transition planning/care coordination assessment. [employer] BLANK[employer] introduced self and role at [facility], pt voices understanding and consents to assessment. Pt is A/O x4 and answers all questions appropriately at this time. Pt sitting up in chair, dressed on RA in no distress. Care providers, pharmacy, and demographics verified/updated. Admitting Dx: SOB PCP:[place] Specialists:Pt denies. Preferred Pharmacy: [facility] Benef[facility]: yes LW/HPOA: Pt has a LW/DPOA on file at [facility]. Her DPOA is Solis Ervin, . LNOK: Solis Ervin, Living Arrangements: Pt lives with in a two story house with 4 steps to enter with no rails. Pt reports she is I in ADL's and denies concerns at home. Transportation: Pt drives self and denies concerns with transportation. DME/HHC/SNF: Pt has grab bars in the bathroom. Pt denies hx of HHC or SNF stays. Pt states no concerns with going home at time of dc. Pt states no further concerns/needs. CM to follow. Advised pt to ask CM if any further question/concerns/needs arise, voices understanding. Pt Goal: Home Plan: Home Pt did not qualify for home O2.
== END 2021-06-05 15:04 | disposition home or self-care (01) | DRG 202 ==
LOC: ED 16:43 → MS3 18:05
PROVIDERS: Admitting Provider Internal Medicine; Emergency Provider Emergency Medicine; PCP Internal Medicine; Visit Provider Internal Medicine
DX: J20.9 Acute bronchitis, unspecified (principal); J96.01 Acute respiratory failure with hypoxia; E87.6 Hypokalemia; I10 Essential (primary) hypertension; E78.00 Pure hypercholesterolemia, unspecified; E78.5 Hyperlipidemia, unspecified; F41.9 Anxiety disorder, unspecified; Z20.822 Contact with and (suspected) exposure to COVID-19; F32.A Depression, unspecified; Z79.899 Other long term (current) drug therapy; Z23 Encounter for immunization; Z85.3 Personal history of malignant neoplasm of breast
CPT/HCPCS: 36415; 71045; 80048; 80053; 83605; 85025; 85379; 87040; 87426; 87635; 87804; 87807; 93005; 94640; 97165; 97802; 99285; G0008; 90686; A4216; U0003; U0005

== ENCOUNTER 2024-02-17 13:16 | Emergency (ER) | payer MEDICARE, OTHER, SELFPAY ==
[2024-02-17 13:17] VITALS: BP 128/92; PULSE 96; RESP 16; TEMP 36.4; O2SAT 93; BMI 29.6
[2024-02-17 14:24] LABS: Absolute Lymphocyte Count 2.06 X10^3/uL (0.83-4.51); Absolute Neutrophil Count 6.8 X10^3/uL (2.0-7.7); Basophil# 0.09 X10^3/uL; Basophil% 0.9 % (0-1); Eosinophil# 0.21 X10^3/uL; Eosinophils% 2.1 % (0-5); Hematocrit 39.7 % (37-47); Hemoglobin 13.4 g/dL (12.0-15.0); Lymphocyte # 2.06 X10^3/ul (0.83-4.51); Lymphocyte % 20.2 % (19-41); Mean Corp Hgb Conc 33.8 g/dL (32-36); Mean Corpuscular Hgb 31.4 pg (27.0-32.0); Mean Platelet Vol. 9.3 fl (6.2-12.0); Monocyte# 1.04 X10^3/uL; Monocyte% 10.2 % (0-10); NRBC Flagged by Analyzer 0 % (0-5); Neutrophil # 6.78 X10^3/uL (2.7-7.7); Neutrophil % 66.2 % (47-70); Platelet Count 274 K/mm3 (150-450); RBC Distribution Width CV 12.5 % (11.6-14.6); RBC Distribution Width SD 42.5 fl (35.1-43.9); Red Blood Count 4.27 M/mm3 (4.2-5.4); White Blood Count 10.2 K/mm3 (4.4-11.0)
[2024-02-17 14:38] LABS: ALB/GLOB Ratio 0.9 RATIO (0.9-2.4); AST(SGOT) 10 U/L (15-37); Alanine Aminotransfer ALT/SGPT 16 U/L (13-56); Albumin, Serum 3.7 g/dL (3.2-5.0); Alkaline Phosphatase 61 U/L (45-117); Anion Gap 6 (5-15); BUN 21 mg/dL (7-18); Chloride 102 mmol/L (98-107); Creatinine, Serum 1.05 mg/dL (0.55-1.02); EST Glomerular Filtration Rate 54 mL/min (>60); Est Glom Filt Rate - Afr Amer 65 mL/min (>60); Estimated Creatinine Clearance 43.06 ml/min; Glucose 94 mg/dL (74-106); Potassium 3.5 mmol/L (3.5-5.1); Protein, Total 7.7 g/dL (6.4-8.2); Sodium Level 137 mmol/L (136-145)
[2024-02-17 15:50] VITALS: BP 119/70; PULSE 88; RESP 16; O2SAT 94
[2024-02-17 17:00] VITALS: BP 135/81; PULSE 76; RESP 15; O2SAT 93
--- NOTE | 2024-02-17 17:03 | EDS_ITS ---
HPI History of Present Illness Chief Complaint: Nausea/Vomiting Narrative Narrative: 78-year-old female presents with nausea and vomiting and abdominal pain mainly in the left upper to lower quadrants since Saturday, 4 days ago. She states her symptoms began when she went to see her at the long term. Around 7:30 PM she decided to go home because she was not feeling well. The following day, she vomited once without any blood in her emesis. Over the next few days, she developed loose stool and diarrhea as well as abdominal pain. It was intermittent, but started again at 9 PM. When it returned again today, she decided to come to the emergency department for evaluation instead of urgent care. No previous abdominal surgeries. No fevers or chills. She has not had nausea or vomiting since Saturday, 2 days ago. In the emergency department, she is essentially pain-free. [facility] Medical History Depression High cholesterol HTN (hypertension) Home Medications ?Medication ?Instructions ?Recorded ?Last Taken ?Type alprazolam 0.5 mg tablet,extended 0.25 mg PO QHS PRN PRN Anxiety 09/13/13 06/03/21 21:00 History release 24 hr (Xanax XR) fluoxetine 20 mg capsule 20 mg PO DAILY anxiety 09/13/13 06/03/21 21:00 History simvastatin 20 mg tablet 20 mg PO QHS cholesterol 09/13/13 06/03/21 21:00 History hydrochlorothiazide 12.5 mg capsule 12.5 mg PO DAILY htn 06/04/21 06/03/21 21:00 History lisinopril 10 mg tablet 10 mg PO DAILY htn 06/04/21 06/03/21 21:00 History cephalexin 500 mg tablet 500 mg PO BID #14 tabs 02/17/24 Unknown Rx Allergy/AdvReac Type Severity Reaction Status Date / Time bacitracin (From Neosporin Allergy Rash Verified 02/17/24 13:17 ([id number])) bacitracin zinc (From Allergy Rash Verified 02/17/24 13:17 Neosporin ([id number])) neomycin sulfate (From Allergy Rash Verified 02/17/24 13:17 Neosporin ([id number])) polymyxin B (From Neosporin Allergy Rash Verified 02/17/24 13:17 ([id number])) sulfamethoxazole (From AdvReac Nausea/Vom/ Verified 02/17/24 13:17 Bactrim) Diarrhea trimethoprim (From Bactrim) AdvReac Nausea/Vom/ Verified 02/17/24 13:17 Diarrhea Family History Mother Heart disease Surgical History S/P BSO (bilateral salpingo-oophorectomy) H/O lumpectomy Social History household members: spouse Smoking Status: Never smoker alcohol intake: never substance use type: does not use ROS ROS ED ROS Narrative Constitutional: No fever, no chills. Feels tired and wiped out. Positive generalized weakness. HEENT: No sore throat. No neck pain. No loss of vision. No rhinorrhea. Cardiovascular: No chest pain. No palpitations. No pedal edema. Respiratory: No cough, no shortness of breath. Abdominal: Left upper and lower abdominal pain. Nausea and vomiting x 1 on Saturday, 2 days ago. Positive diarrhea/loose stool. Genitourinary: No dysuria. No hematuria. Musculoskeletal: No myalgias. No arthralgias. Neurologic: No headaches. No dizziness. No lightheadedness. Skin: No rash. No change in color. Psychiatric: No depression. No anxiety. EXAM Physical Exam Narrative Exam Narrative: Afebrile. Vital signs noted. HEENT: Normocephalic. Atraumatic. PERRL, EOMI. Neck soft and supple. No point tenderness or step off. Cardiovascular: Regular rate and rhythm. No murmurs, rubs, or gallops appreciated. Respiratory: No tachypnea. Lungs clear to auscultation bilaterally. Gastrointestinal: Abdomen soft, mild tenderness to palpation left upper and lower quadrants with normoactive bowel sounds. No rebound or guarding. Neurological: Awake. Alert. Nonfocal, nonlateralizing. Skin: No rash. Normal color. No pallor. Musculoskeletal: No pedal edema. Full range of motion extremities. Const Vital Signs: 02/17/24 13:17 02/17/24 15:50 02/17/24 17:00 Temperature 97.6 F L Temperature Source Temporal Pulse Rate 96 88 76 Respiratory Rate 16 16 15 Blood Pressure 128/92 H 119/70 135/81 H Blood Pressure Mean 104 86 99 Pulse Ox 93 94 93 Oxygen Delivery Method Room Air Room Air Room Air MDM MDM MDM Narrative Medical decision making narrative: Differential diagnosis includes but not limited to diverticulitis versus pancreatitis versus gastroenteritis versus partial small bowel obstruction. Comprehensive workup was pursued. I reviewed the laboratory work that was ordered per protocol and she has a normal white count of 10.2 with hemoglobin normal at 13.4, hematocrit 39.7, platelet count normal at 274. Sodium normal at 137 with potassium 3.5, BUN of 21 with creatinine 1.05, glucose normal at 94. Lipase is slightly elevated at 100 which I think is nonspecific. I reviewed the radiology report of the CT of the abdomen and pelvis and there is no gallbladder wall thickening, no stranding around the pancreas indicating pancreatitis, no obstruction, no diverticulitis. There was noted incidental adrenal nodule, and patient was told to follow-up with her primary care provider not emergently with this. I did review her urinalysis as well, and she has greater than 100 WBCs but there are squamous epithelial cells. Although she is not having dysuria, I will send for culture and treat her with cephalexin for a week. Upon repeat examination at approximately 1830, patient states she is pain-free. She was told of her elevated lipase and that she is to start a clear liquid diet and advance as tolerated and return with increased vomiting, increased pain, new or worsening symptoms. I feel she can be discharged safely home on antibiotics to follow-up with her primary care provider. Return instructions to the emergency department were reviewed, patient agreeable to the plan. Disposition is discharged home in stable condition. History & Record Review Discussion w/independent historian: Patient Lab Data Attestation: I reviewed the patient's lab results. Labs: Laboratory Results - last 24 hr 02/17/24 02/17/24 14:10 17:26 WBC 10.2 RBC 4.27 Hgb 13.4 Hct 39.7 MCV 93.0 MCH 31.4 MCHC 33.8 RDW Std Deviation 42.5 RDW Coeff of Tracey 12.5 Plt Count 274 MPV 9.3 Immature Gran % (Auto) 0.400 Neut % (Auto) 66.2 Lymph % (Auto) 20.2 Sunflower % (Auto) 10.2 H Eos % (Auto) 2.1 Baso % (Auto) 0.9 Absolute Neuts (auto) 6.8 Absolute Lymphs (auto) 2.06 Nucleated RBC % 0 Sodium 137 Potassium 3.5 Chloride 102 Carbon Dioxide 29.0 Anion Gap 6 BUN 21 H Creatinine 1.05 H Estim Creat Clear Calc 43.06 Est GFR (MDRD) Af Amer 65 Est GFR (MDRD) Non-Af 54 L BUN/Creatinine Ratio 20.0 Glucose 94 Calcium 10.0 Total Bilirubin 0.80 AST 10 L ALT 16 Alkaline Phosphatase 61 Total Protein 7.7 Albumin 3.7 Globulin 4.0 Albumin/Globulin Ratio 0.9 Lipase 100 H Urine Color Yellow Urine Clarity Cloudy Urine pH 5.0 Ur Specific [place] 1.020 Urine Protein 15 H Urine Glucose (UA) Normal Urine Ketones Negative Urine Occult Blood 25 H Urine Nitrite Negative Urine Bilirubin Negative Urine Urobilinogen Normal Ur Leukocyte Esterase 500 H Urine RBC 0 SEEN Urine WBC >100 SEEN Ur Squamous Epith Cells 10-25 SEEN Urine Bacteria 3+ Urine Mucus 0 SEEN Radiography Diagnostic Testing: Clinical Impression(s) from Imaging Studies Abdomen/Pelvis CT 02/17/24 17:38 IMPRESSION: Small bilateral renal cysts.. No evidence for small bowel obstruction or other acute abnormality. Incidental finding of small right adrenal nodule of uncertain etiology. MRI would be useful for further assessment if clinically warranted Electronically Signed: Todd Daniels MD at 18:12 EDT Reading Location ID and State: [facility] / [place] Tel , Service support , Discharge Plan Triage Chief Complaint: Nausea/Vomiting ED Provider: Kvng Fernandez Dx/Rx/DC Orders Clinical Impression: Nausea and vomiting, Elevated lipase, UTI (urinary tract infection), Weakness, Adrenal nodule, Abdominal pain Instructions: Urinary Tract Infections in Women, ED Diet Vomiting Diarrhea, ED Weakness (Uncertain Cause), ED Vomit Diarrhea Nonspec Adult Prescriptions: New cephalexin 500 mg tablet 500 mg PO BID Qty: 14 0RF No Action simvastatin 20 MG tablet 20 mg PO QHS fluoxetine 20 MG capsule 20 mg PO DAILY alprazolam [Xanax XR] 0.5 MG tablet extended release 24 hr 0.25 mg PO QHS PRN PRN (Reason: Anxiety) lisinopril 10 mg tablet 10 mg PO DAILY hydrochlorothiazide 12.5 mg capsule 12.5 mg PO DAILY Primary Care Provider: Josselin Quinn Referrals: Josselin Quinn MD [Primary Care Provider] - 3-5 Days if not improving Activity Restrictions/Additional Instructions: Return with new or worsening symptoms. You had elevated lipase. Started on clear liquids and advance your diet as tolerated. Additionally, your CT scan did show a nodule on your adrenal gland that will require follow-up with your primary care provider not emergently. Print Language: Zambian Disposition Disposition: Home, Self Care
[2024-02-17 17:31] LABS: Red Blood Cells-Urine 0 SEEN /hpf (0-5)
[2024-02-17 17:32] LABS: Mucous, Urine 0 SEEN /hpf (<or=2+)
[2024-02-17 17:33] LABS: Color, Urine Yellow (Yellow); Glucose, Dipstick Normal (Normal); Ketone-Dipstick Negative (Negative); Leukocyte Esterase-Dipstick 500 /ul (Negative); Nitrite-Dipstick Negative (Negative); Occult Blood-Urine 25 /ul (Negative); Protein-Dipstick 15 mg/dl (Negative); Urine Bilirubin Dipstick Negative (Negative); Urine Clarity Cloudy (Clear); Urine Urobilinogen Normal (Normal)
--- NOTE | 2024-02-17 17:38 | CT_ITS ---
STUDY: CT ABDOMEN AND PELVIS WITH CONTRAST REASON FOR EXAM: Female, 78 years old. left sided abdominal pain RADIATION DOSAGE (If Supplied By Facility): CTDIvol = ( 11.93 ) mGy, DLP = ( 731.80 ) mGycm TECHNIQUE: Transaxial images were obtained from the dome of the diaphragm to the symphysis pubis without oral contrast. IV 100mL Isovue-300 was administered. Sagittal and coronal images were reconstructed. Individualized dose optimization techniques were used for this CT. COMPARISON: None. FINDINGS: Minor atelectasis in the lower lobes.. The visualized portions of the heart are within normal limits. Mild nonspecific fatty infiltrated liver without mass or bile duct dilatation. Normal gallbladder and extrahepatic biliary system. Normal spleen. Normal pancreas. Small right adrenal nodule measuring 1.3 cm of uncertain significance. Left adrenal is normal. Tiny nonobstructing right renal calculus. There is a small simple cortical cyst. There is also a larger cortical cyst in left kidney. . Normal visualized stomach. Normal small intestine. Normal colon. No evidence for acute appendicitis. Atherosclerotic changes of the aorta without evidence for aneurysm. Normal inferior vena cava. Normal retroperitoneum. Normal urinary bladder. Small fat-containing umbilical hernia.. Lumbar spine demonstrates mild degenerative changes CT/Abdomen/Pelvis W IV Cont ONLY IMPRESSION: Small bilateral renal cysts.. No evidence for small bowel obstruction or other acute abnormality. Incidental finding of small right adrenal nodule of uncertain etiology. MRI would be useful for further assessment if clinically warranted Electronically Signed: Todd Daniels MD at 18:12 EDT ,
[2024-02-17 17:45] LABS: Lipase 100 U/L (13-75)
[2024-02-17] MEDS: 0.9% Normal Saline (1000mL) 1,000 ML 999 ML IV (17:56)
[2024-02-17 18:01] LABS: White Blood Cells >100 SEEN /hpf (0-5)
[2024-02-17 18:02] LABS: Bacteria 3+ /hpf (None Seen); Squamous Epithelial Cells - UA 10-25 SEEN /hpf (5-10)
[2024-02-17] MEDS: Cephalexin 250 MG Capsule 500 MG PO (18:43)
[2024-02-17 18:46] VITALS: BP 149/75; PULSE 75; RESP 19; TEMP 37.1; O2SAT 93
== END 2024-02-17 18:47 | disposition home or self-care (01) ==
PROVIDERS: Emergency Provider Emergency Medicine; PCP Internal Medicine; Referring Provider Emergency Medicine; Visit Provider Emergency Medicine
DX: R11.2 Nausea with vomiting, unspecified (principal); N39.0 Urinary tract infection, site not specified; R53.1 Weakness; R74.8 Abnormal levels of other serum enzymes; R19.7 Diarrhea, unspecified; R10.32 Left lower quadrant pain; R10.31 Right lower quadrant pain; R10.12 Left upper quadrant pain; E27.9 Disorder of adrenal gland, unspecified; I10 Essential (primary) hypertension; F32.A Depression, unspecified; E78.00 Pure hypercholesterolemia, unspecified; Z88.2 Allergy status to sulfonamides; Z88.1 Allergy status to other antibiotic agents; Z79.899 Other long term (current) drug therapy
CPT/HCPCS: 74177; 80053; 81001; 83690; 85025; 87086; 87088; 96360; 99283; J7030; Q9967; A4216